=== PATIENT | male | born 1950 | race Caucasian/White ===

== ENCOUNTER 2018-05-20 16:02 | Emergency (ER) | payer OTHER ==
[~2018-05-20] VITALS: Ht 167.6 cm; Wt 69.0 kg
[2018-05-20] MEDS ORDERED: JANUMET 50-1,01 EACH PO (17:26)
[2018-05-20] MEDS ORDERED: FENOFIBRATE160 MG PO (17:27)
[2018-05-20] MEDS ORDERED: LISINOPRIL10 MG PO (17:27)
[2018-05-20] MEDS ORDERED: MOBIC7.5 MG PO (17:39)
[2018-05-20] MEDS ORDERED: PREDNISONE 20 M20 MG PO (17:39)
== END 2018-05-20 17:58 | disposition home or self-care (01) ==
LOC: ER 16:02
DX: M75.31 Calcific tendinitis of right shoulder (principal); F17.210 Nicotine dependence, cigarettes, uncomplicated